=== PATIENT | male | born 1970 | race Hispanic/Latino ===

== ENCOUNTER → 2024-03-13 06:41 | Outpatient (REF) | payer BC, SELFPAY ==
[2024-03-13 07:58] LABS: Hematocrit 44.9 % (39.0-52.0); Hemoglobin 15.7 g/dL (13.0-18.0); Mean Corpuscular Hgb 28.9 pg (27.0-31.0); Mean Corpuscular Volume 82.5 fL (80.0-94.0); Mean Platelet Volume 10.6 fL (7.4-10.4); Platelet Count 327 10^3/uL (130-400); Red Blood Cell Count 5.44 10^6/uL (4.70-6.10); Red Cell Dist. Width 12.9 % (11.5-14.5)
[2024-03-13 09:10] LABS: ALT (SGPT) 63 U/L (0-50); AST (SGOT) 41 U/L (17-59); Albumin 4.5 g/dl (3.5-5.0); Alkaline Phosphatase 65 U/L (38-126); Blood Urea Nitrogen 11 mg/dl (9-20); Calcium 10.2 mg/dl (8.4-10.2); Carbon Dioxide 23 mmol/L (22-30); Chloride 105 mmol/L (98-107); Glucose 89 mg/dl (70-99); HDL Cholesterol 37 mg/dl; LDL Cholesterol, Calculated 143 mg/dl; Potassium 4.3 mmol/L (3.5-5.1); Sodium 139 mmol/L (135-145); Total Bilirubin 0.9 mg/dl (0.2-1.3); Total Cholesterol 233 mg/dl (50-199); Total Protein 7.1 g/dl (6.3-8.2); Triglyceride 267 mg/dl (10-149); Very Low Density Lipoprotein 53 mg/dl (0-30); eGFR > 60.00
[2024-03-13 10:22] LABS: Uric Acid 11.1 mg/dl (3.5-8.5)
== END ==
LOC: REG 06:41
PROVIDERS: ATTENDING PHYSICIAN Family Medicine
DX: M10.9 Gout, unspecified (principal); E78.5 Hyperlipidemia, unspecified; R74.8 Abnormal levels of other serum enzymes
CPT/HCPCS: 36415; 80053; 80061; 84550; 85027

== ENCOUNTER → 2024-03-23 10:15 | Outpatient (REF) | payer BC, SELFPAY | LOC: REG 10:15 | PROVIDERS: ATTENDING PHYSICIAN Family Medicine | DX: Z91.010 Allergy to peanuts (principal) | CPT/HCPCS: 36415 ==

== ENCOUNTER → 2024-04-04 15:19 | Outpatient (REF) | payer BC, SELFPAY | LOC: HWRAD 15:19 | PROVIDERS: ATTENDING PHYSICIAN Family Medicine | DX: R74.8 Abnormal levels of other serum enzymes (principal) | CPT/HCPCS: 76700 ==

== ENCOUNTER → 2024-09-23 16:58 | Outpatient (REF) | payer BC, SELFPAY ==
[2024-09-23 17:40] LABS: % Basophils 0.6 % (0-2); % Immature Granulocytes 0.4 % (0-0.5); % Lymphocytes 33.2 % (20.5-51.1); % Monocytes 9.7 % (1.7-9.3); % Neutrophils 54.1 % (42.2-75.2); Absolute Eosinophils 0.1 10^3/uL (0-0.7); Absolute Lymphocytes 2.4 10^3/uL (1.2-3.4); Absolute Monocytes 0.7 10^3/uL (0.1-0.6); Absolute Neutrophils 3.9 10^3/uL (1.4-6.5); Hematocrit 42.7 % (39.0-52.0); Hemoglobin 14.9 g/dL (13.0-18.0); Mean Corp Hgb Conc. 34.9 g/dL (33.0-37.0); Mean Corpuscular Hgb 29.2 pg (27.0-31.0); Mean Corpuscular Volume 83.7 fL (80.0-94.0); Mean Platelet Volume 9.6 fL (7.4-10.4); Nucleated Red Blood Cells % 0 % (-); Platelet Count 325 10^3/uL (130-400); Red Cell Dist. Width 12.9 % (11.5-14.5); White Blood Cell Count 7.1 10^3/uL (4.8-10.8)
[2024-09-23 17:51] LABS: ALT (SGPT) 79 U/L (0-50); AST (SGOT) 41 U/L (17-59); Albumin 4.5 g/dl (3.5-5.0); Alkaline Phosphatase 58 U/L (38-126); Blood Urea Nitrogen 18 mg/dl (9-20); Calcium 9.5 mg/dl (8.4-10.2); Carbon Dioxide 29 mmol/L (22-30); Chloride 101 mmol/L (98-107); Glucose 98 mg/dl (70-99); Potassium 4.2 mmol/L (3.5-5.1); Sodium 141 mmol/L (135-145); Total Bilirubin 0.4 mg/dl (0.2-1.3); Total Protein 6.9 g/dl (6.3-8.2); Uric Acid 6.8 mg/dl (3.5-8.5); eGFR > 60.00
== END ==
LOC: RAD 16:58
PROVIDERS: ATTENDING PHYSICIAN Nurse Practitioner Gerontology; FAMILY PHYSICIAN Family Medicine
DX: M76.60 Achilles tendinitis, unspecified leg (principal); M10.9 Gout, unspecified
CPT/HCPCS: 36415; 73650; 80053; 84550; 85025

== ENCOUNTER → 2025-01-14 06:32 | Outpatient (REF) | payer BC, SELFPAY ==
[2025-01-14 07:35] LABS: % Basophils 0.8 % (0-2); % Eosinophils 2.2 % (0-6); % Lymphocytes 34.6 % (20.5-51.1); % Monocytes 9.3 % (1.7-9.3); % Neutrophils 52.1 % (42.2-75.2); Absolute Basophils 0.1 10^3/uL (0-0.2); Absolute Eosinophils 0.1 10^3/uL (0-0.7); Absolute Immature Granulocytes 0.1 10^3/uL (0-0.05); Absolute Monocytes 0.6 10^3/uL (0.1-0.6); Absolute Neutrophils 3.1 10^3/uL (1.4-6.5); Hematocrit 43.2 % (39.0-52.0); Hemoglobin 15.1 g/dL (13.0-18.0); Mean Corpuscular Hgb 28.9 pg (27.0-31.0); Mean Corpuscular Volume 82.6 fL (80.0-94.0); Nucleated Red Blood Cells % 0 % (-); Platelet Count 311 10^3/uL (130-400); Red Blood Cell Count 5.23 10^6/uL (4.70-6.10); Red Cell Dist. Width 12.6 % (11.5-14.5); White Blood Cell Count 5.9 10^3/uL (4.8-10.8)
[2025-01-14 07:41] LABS: ALT (SGPT) 75 U/L (0-50); AST (SGOT) 32 U/L (17-59); Alkaline Phosphatase 62 U/L (38-126); Blood Urea Nitrogen 12 mg/dl (9-20); Calcium 9.9 mg/dl (8.4-10.2); Carbon Dioxide 31 mmol/L (22-30); Chloride 104 mmol/L (98-107); Glucose 98 mg/dl (70-99); Potassium 4.6 mmol/L (3.5-5.1); Sodium 142 mmol/L (135-145); Total Bilirubin 0.8 mg/dl (0.2-1.3); Total Protein 6.6 g/dl (6.3-8.2); eGFR > 60.00
[2025-01-14 08:11] LABS: Hepatitis B Surface Antigen Negative (Negative)
[2025-01-14 08:28] LABS: Hepatitis C Antibody Negative (Negative)
[2025-01-14 15:09] LABS: Hepatitis B Core Ab, Total Negative (Negative)
[2025-01-15 19:04] LABS: Glu-6-Phosphate Dehydrogenase 13.1 U/g Hb (9.9-16.6)
[2025-01-16 08:43] LABS: Quantiferon Mitogen minus NIL 9.98 IU/mL; Quantiferon NIL 0.02 IU/mL; Quantiferon Plus TB1 minus NIL 0.01 IU/mL (<=0.34); Quantiferon Plus TB2 minus NIL 0.01 IU/mL (<=0.34); Quantiferon TB Gold Plus Negative (Negative)
[2025-01-16 22:24] LABS: Magnesium, RBC's Result 6.4 mg/dL (3.6-7.5)
== END ==
LOC: REG 06:32
PROVIDERS: ATTENDING PHYSICIAN Internal Medicine Rheumatology; FAMILY PHYSICIAN Family Medicine
DX: E78.5 Hyperlipidemia, unspecified (principal); K76.0 Fatty (change of) liver, not elsewhere classified; M10.9 Gout, unspecified; Z51.81 Encounter for therapeutic drug level monitoring
CPT/HCPCS: 36415; 80053; 82955; 83735; 84550; 85025; 86140; 86480; 86704; 86803; 87340

== ENCOUNTER → 2025-01-25 08:12 | Outpatient (REF) | payer BC, SELFPAY ==
[2025-01-25 10:29] LABS: Erythrocyte Sed Rate 9 mm/hour (0-20)
== END ==
LOC: REG 08:12
PROVIDERS: ATTENDING PHYSICIAN Internal Medicine Rheumatology; FAMILY PHYSICIAN Family Medicine
DX: M10.9 Gout, unspecified (principal); M17.10 Unilateral primary osteoarthritis, unspecified knee
CPT/HCPCS: 36415; 85652

== ENCOUNTER → 2025-03-25 06:39 | Outpatient (REF) | payer BC, SELFPAY ==
[2025-03-25 07:41] LABS: Uric Acid < 0.5 mg/dl (3.5-8.5)
== END ==
LOC: REG 06:39
PROVIDERS: ATTENDING PHYSICIAN Internal Medicine Rheumatology; FAMILY PHYSICIAN Family Medicine
DX: M10.9 Gout, unspecified (principal)
CPT/HCPCS: 36415; 84550

== ENCOUNTER → 2025-04-08 06:27 | Outpatient (REF) | payer BC, SELFPAY ==
[2025-04-08 07:52] LABS: Uric Acid < 0.5 mg/dl (3.5-8.5)
== END ==
LOC: REG 06:27
PROVIDERS: ATTENDING PHYSICIAN Internal Medicine Rheumatology; FAMILY PHYSICIAN Family Medicine
DX: M10.9 Gout, unspecified (principal)
CPT/HCPCS: 36415; 84550

== ENCOUNTER → 2025-04-22 07:10 | Outpatient (REF) | payer BC, SELFPAY ==
[2025-04-22 08:36] LABS: Uric Acid < 0.5 mg/dl (3.5-8.5)
== END ==
LOC: REG 07:10
PROVIDERS: ATTENDING PHYSICIAN Internal Medicine Rheumatology; FAMILY PHYSICIAN Family Medicine
DX: M10.9 Gout, unspecified (principal)
CPT/HCPCS: 36415; 84550

== ENCOUNTER → 2025-05-07 07:03 | Outpatient (REF) | payer BC, SELFPAY ==
[2025-05-07 07:50] LABS: Hematocrit 44.1 % (39.0-52.0); Hemoglobin 15.2 g/dL (13.0-18.0); Mean Corp Hgb Conc. 34.5 g/dL (33.0-37.0); Mean Corpuscular Volume 85.6 fL (80.0-94.0); Platelet Count 340 10^3/uL (130-400); Red Cell Dist. Width 12.7 % (11.5-14.5)
[2025-05-07 08:16] LABS: ALT (SGPT) 45 U/L (0-50); AST (SGOT) 22 U/L (17-59); Albumin 4.5 g/dl (3.5-5.0); Alkaline Phosphatase 47 U/L (38-126); Blood Urea Nitrogen 14 mg/dl (9-20); Calcium 9.9 mg/dl (8.4-10.2); Carbon Dioxide 30 mmol/L (22-30); Chloride 104 mmol/L (98-107); Glucose 99 mg/dl (70-99); HDL Cholesterol 42 mg/dl; LDL Cholesterol, Calculated 163 mg/dl; Potassium 4.6 mmol/L (3.5-5.1); Sodium 140 mmol/L (135-145); Total Protein 6.7 g/dl (6.3-8.2); Very Low Density Lipoprotein 45 mg/dl (0-30); eGFR > 60.00
[2025-05-07 08:47] LABS: PSA, Total - Screen 0.80 ng/ml (0.0-4.0)
[2025-05-07 11:26] LABS: Uric Acid < 0.5 mg/dl (3.5-8.5)
== END ==
LOC: REG 07:03
PROVIDERS: ATTENDING PHYSICIAN Internal Medicine Rheumatology; FAMILY PHYSICIAN Family Medicine
DX: Z12.5 Encounter for screening for malignant neoplasm of prostate (principal); K75.81 Nonalcoholic steatohepatitis (NASH); M10.9 Gout, unspecified
CPT/HCPCS: 36415; 80053; 80061; 84550; 85027; G0103

== ENCOUNTER → 2025-05-21 06:42 | Outpatient (REF) | payer BC, SELFPAY ==
[2025-05-21 08:07] LABS: Uric Acid < 0.5 mg/dl (3.5-8.5)
== END ==
LOC: REG 06:42
PROVIDERS: ATTENDING PHYSICIAN Internal Medicine Rheumatology; FAMILY PHYSICIAN Family Medicine
DX: M10.9 Gout, unspecified (principal)
CPT/HCPCS: 36415; 84550

== ENCOUNTER → 2025-06-04 09:31 | Outpatient (REF) | payer BC, SELFPAY ==
[2025-06-04 10:58] LABS: Uric Acid 0.7 mg/dl (3.5-8.5)
== END ==
LOC: REG 09:31
PROVIDERS: ATTENDING PHYSICIAN Internal Medicine Rheumatology
DX: M10.9 Gout, unspecified (principal)
CPT/HCPCS: 36415; 84550

== ENCOUNTER → 2025-07-16 09:27 | Outpatient (REF) | payer BC, SELFPAY ==
[2025-07-16 11:02] LABS: Uric Acid 0.5 mg/dl (3.5-8.5)
== END ==
LOC: REG 09:27
PROVIDERS: ATTENDING PHYSICIAN Internal Medicine Rheumatology; FAMILY PHYSICIAN Family Medicine
DX: M10.9 Gout, unspecified (principal)
CPT/HCPCS: 36415; 84550

== ENCOUNTER → 2025-07-30 09:28 | Outpatient (REF) | payer BC, SELFPAY ==
[2025-07-30 12:49] LABS: Uric Acid < 0.5 mg/dl (3.5-8.5)
== END ==
LOC: REG 09:28
PROVIDERS: ATTENDING PHYSICIAN Internal Medicine Rheumatology; FAMILY PHYSICIAN Family Medicine
DX: M10.9 Gout, unspecified (principal)
CPT/HCPCS: 36415; 84550

== ENCOUNTER → 2025-08-13 07:44 | Outpatient (REF) | payer BC, SELFPAY ==
[2025-08-13 09:49] LABS: Uric Acid < 0.5 mg/dl (3.5-8.5)
== END ==
LOC: REG 07:44
PROVIDERS: ATTENDING PHYSICIAN Internal Medicine Rheumatology; FAMILY PHYSICIAN Family Medicine
DX: M10.9 Gout, unspecified (principal)
CPT/HCPCS: 36415; 84550

== ENCOUNTER → 2025-08-27 09:26 | Outpatient (REF) | payer BC, SELFPAY ==
[2025-08-27 11:01] LABS: Uric Acid < 0.5 mg/dl (3.5-8.5)
== END ==
LOC: REG 09:26
PROVIDERS: ATTENDING PHYSICIAN Internal Medicine Rheumatology; FAMILY PHYSICIAN Family Medicine
DX: M10.9 Gout, unspecified (principal)
CPT/HCPCS: 36415; 84550